=== PATIENT | female | born 1955 | race Caucasian/White ===

== ENCOUNTER → 2023-06-30 | Day surgery (SDC) | payer MEDICARE ==
[2023-06-26 11:22] LABS: BASOPHILS % 0.3 % (0.0-1.0); EOSINOPHILS # (AUTO) 0.1 (0.0-0.4); EOSINOPHILS % 2.2 % (0.0-6.0); HEMATOCRIT 39.9 % (34.2-44.1); HEMOGLOBIN 14.3 g/dL (12.0-16.0); LYMPHOCYTES # (AUTO) 1.5 (1.0-3.2); LYMPHOCYTES % 23.8 % (18.0-39.1); MEAN CORPUSCULAR HEMOGLOBIN 30.9 pg (28-32); MEAN CORPUSCULAR HGB CONC 35.8 g/dL (31-35); MEAN CORPUSCULAR VOLUME 86.2 fL (81-99); MONOCYTES # (AUTO) 0.7 (0.2-0.8); MONOCYTES % 10.2 % (4.4-11.3); NEUTROPHILS # (AUTO) 4.1 (2.1-6.9); NEUTROPHILS % 63.3 % (38.7-80.0); PLATELET COUNT 238 x10e3/uL (140-360); RED BLOOD COUNT 4.63 x10e6/uL (3.6-5.1); RED CELL DISTRIBUTION WIDTH 12.3 % (11.7-14.4); WHITE BLOOD COUNT 6.46 x10e3/uL (4.8-10.8)
[~2023-06-30] MED LIST: AMLODIPINE-BEN1 EAC3 PO; CARISOPRODOL350 MG PO; DICYCLOMINE HCL20 MG PO; ESTRADIOL0.5 MG PO; HYDROCODON-ACE1 EACH PO; HYOSCYAMINE SULFATE 0.5 MG/ML INJ ONE; IBUPROFEN600 MG PO; LACTATED RINGER'S 1,000 ML BAG ONE; LACTATED RINGER'S 1,000 ML ONE; LIDOCAINE HCL 2% LOCAL INJ 5 ML SDV VIAL INJ ONE; METOCLOPRAMIDE HCL 10 MG/2ML VIAL ONE; METOPROLOL SUC100 MG PO; METOPROLOL TART25 MG PO; NEXIUM40 MG PO; ONDANSETRON ODT8 MG PO; PANTOPRAZOLE SO40 MG PO; POTASSIUM CHLO20 ME1 PO; PROPOFOL IV EMULSION 10 MG/ML 50 ML VIAL IV ONE; SIMETHICONE 40 MG/0.6 ML BTL ONE; STOOL SOFTENER50 MG PO; TIZANIDINE HCL4 MG PO; ZOLOFT100 MG PO
[2023-06-30] MEDS: LACTATED RINGER'S 1,000 ML BAG IV ONE ×2 (09:25→11:03)
[2023-06-30 13:50] VITALS: TEMP 97.8
[2023-06-30 14:20] VITALS: BP 148/89; PULSE 69; RESP 15; O2SAT 99
== END | disposition home or self-care (01) ==
LOC: OR 10:55
PROVIDERS: ATTEND Internal Medicine Gastroenterology
DX: K29.70 Gastritis, unspecified, without bleeding (principal); D12.4 Benign neoplasm of descending colon; K63.3 Ulcer of intestine; K29.80 Duodenitis without bleeding; K20.90 Esophagitis, unspecified without bleeding; K21.9 Gastro-esophageal reflux disease without esophagitis; K44.9 Diaphragmatic hernia without obstruction or gangrene; K59.09 Other constipation; Z71.3 Dietary counseling and surveillance; Z87.19 Personal history of other diseases of the digestive system; R63.4 Abnormal weight loss; R53.83 Other fatigue; I10 Essential (primary) hypertension; F32.A Depression, unspecified; Z88.0 Allergy status to penicillin; Z88.2 Allergy status to sulfonamides; Z01.810 Encounter for preprocedural cardiovascular examination; Z01.812 Encounter for preprocedural laboratory examination; Z79.899 Other long term (current) drug therapy; Z86.16 Personal history of COVID-19
CPT/HCPCS: 36415; 43239; 45380; 45385; 85025; 93005; C9113; J1980; J2001; J2704; J2765; J7121